=== PATIENT | male | born 1985 | race Caucasian/White ===

== ENCOUNTER 2018-01-18 22:35 | Emergency (ER) | payer BC ==
[~2018-01-18] VITALS: Ht 165.1 cm; Wt 68.9 kg
[2018-01-18 22:48] VITALS: BP 137/84
[2018-01-18] MEDS ORDERED: LORAZEPAM INJ 2 MG/ML VIAL IVP ONE (23:30)
[2018-01-18] MEDS ORDERED: LORAZEPAM INJ 2 MG/ML VIAL ONE (23:36)
[2018-01-19] MEDS ORDERED: LORAZEPAM INJ 2 MG/ML VIAL IV ONE (00:30)
[2018-01-19] MEDS ORDERED: ONDANSETRON 4 MG TAB.RAPDIS SL ONE (00:30)
[2018-01-19] MEDS ORDERED: HYDROMORPHONE 1 MG/1 ML DISP.SYRIN IV ONE (00:30)
[2018-01-19] MEDS ORDERED: HYDROMORPHONE INJ 2 MG/ML DISP.SYRIN ONE (00:40)
[2018-01-19] MEDS ORDERED: ONDANSETRON HCL/PF 4 MG/2 ML VIAL ONE (00:40)
[2018-01-19] MEDS ORDERED: LORAZEPAM INJ 2 MG/ML VIAL ONE ×2 (00:41→02:06)
[2018-01-19] MEDS ORDERED: METOCLOPRAMIDE HCL 10 MG/2 ML VIAL ONE (01:38)
[2018-01-19] MEDS ORDERED: METOCLOPRAMIDE HCL 10 MG/2 ML VIAL IM ONE (02:00)
--- NOTE | 2018-01-19 02:24 | NUR ---
accidently pulled reglan under this patient when it was ordere for another pt
== END 2018-01-19 02:24 | disposition home or self-care (01) ==
LOC: ER 22:38
DX: M62.830 Muscle spasm of back (principal); M41.9 Scoliosis, unspecified
CPT/HCPCS: 71045; 93005; 96372; 96374; 96375; 96376; 99284; A4606; J1170; J2060; J2405; J2765; J7030; Z7610